=== PATIENT | male | born 1990 | race Two or more races ===

== ENCOUNTER 2018-12-07 21:32 | Emergency (ER) | payer SELFPAY ==
[~2018-12-07] VITALS: Ht 180.3 cm; Wt 87.0 kg
[~2018-12-07 21:32] MED LIST: NONE REPORTED
[2018-12-07] MEDS ORDERED: IBUPROFEN 800MG TABLET PO ONE (23:30)
[2018-12-07] MEDS ORDERED: CEPHALEXIN 250MG CAPSULE PO ONE ×2 (23:30)
[2018-12-07 23:54] VITALS: BP 136/55
== END 2018-12-07 23:57 | disposition home or self-care (01) ==
LOC: ER 21:32
DX: H00.031 Abscess of right upper eyelid (principal); F12.10 Cannabis abuse, uncomplicated
CPT/HCPCS: 99283

== ENCOUNTER 2019-02-19 22:20 | Emergency (ER) | payer SELFPAY ==
[~2019-02-19] VITALS: Ht 175.3 cm; Wt 86.0 kg
[2019-02-20] MEDS ORDERED: ACETAMINOPHEN WITH CODEINE 300/30MG TABLET PO ONE (01:30)
[2019-02-20 01:56] VITALS: BP 124/78
== END 2019-02-20 01:57 | disposition home or self-care (01) ==
LOC: ER 22:20
DX: K08.89 Other specified disorders of teeth and supporting structures (principal); F12.10 Cannabis abuse, uncomplicated
CPT/HCPCS: 99282

== ENCOUNTER 2024-09-07 10:22 | Emergency (ER) | payer SELFPAY ==
[~2024-09-07] VITALS: Ht 180.3 cm; Wt 78.0 kg
[2024-09-07 10:39] VITALS: O2SAT 98
[2024-09-07 10:55] LABS: BASOPHILS % 0.7 % (0.0-2.0); EOSINOPHILS % 2.6 % (0.0-5.0); HEMATOCRIT. 40.7 % (42.0-52.0); HEMOGLOBIN. 13.7 g/dL (14.0-18.0); LYMPHOCYTES % 27.7 % (20.0-50.0); MEAN CORPUSCULAR HEMOGLOBIN 31.1 pg (28.0-32.0); MEAN CORPUSCULAR HGB CONC 33.7 g/dL (31.0-37.0); MEAN CORPUSCULAR VOLUME 92.3 fL (80.0-94.0); MEAN PLATELET VOLUME 7.8 fl (7.4-10.4); MONOCYTES % 5.5 % (2.0-8.0); NEUTROPHILS % 63.5 % (40.0-76.0); PLATELET 228 x1000/uL (130-400); RED BLOOD CELL COUNT 4.41 mill/uL (4.7-6.1); RED CELL DISTRIBUTION WIDTH 12.8 % (11.6-14.6); WHITE BLOOD COUNT 7.1 x1000/uL (4.5-11.0)
[2024-09-07 11:16] LABS: CHLORIDE 105 mEq/L (98-107); POTASSIUM 3.9 mEq/L (3.5-5.1); SODIUM 141 mEq/L (136-145)
[2024-09-07 11:17] LABS: CALCIUM 9.4 mg/dL (8.7-10.4); CARBON DIOXIDE 29 mEq/L (21-32)
[2024-09-07 11:22] LABS: CREATININE 0.9 mg/dL (0.6-1.3); GLUCOSE 150 mg/dL (70-105); UREA NITROGEN BLOOD 15 mg/dL (9-23)
[2024-09-07 11:24] LABS: ALANINE AMINOTRANSFERASE 7 IU/L (10-49); ALBUMIN 4.2 g/dL (3.2-4.8); ASPARTATE AMINOTRANSFERASE 13 IU/L (<34); BILIRUBIN DIRECT 0.5 mg/dL (<=3.0)
[2024-09-07 11:25] LABS: BILIRUBIN TOTAL 1.6 mg/dL (0.1-1.0); PROTEIN TOTAL 6.7 g/dL (6.0-8.3)
[2024-09-07] MEDS: SODIUM CHLORIDE 0.9% 1,000 ML IV ONE (12:12)
[2024-09-07] MEDS: KETOROLAC 30MG/ML VIAL IV STA (12:36)
[2024-09-07] MEDS: ONDANSETRON HCL 4MG/2ML INJ IV STA (12:36)
[2024-09-07] MEDS ORDERED: IOHEXOL-350 100 ML BOTTLE ONE (12:56)
[2024-09-07] MEDS ORDERED: ONDA4TAB50 PO (13:42)
[2024-09-07] MEDS ORDERED: BISM-77 PO (13:42)
[2024-09-07] MEDS ORDERED: ACET-2708 MT (13:42)
[2024-09-07 13:55] VITALS: BP 122/77; PULSE 72; RESP 16; TEMP 36.7; O2SAT 99
== END 2024-09-07 14:12 | disposition home or self-care (01) ==
LOC: ER 10:32
DX: K52.9 Noninfective gastroenteritis and colitis, unspecified (principal); I10 Essential (primary) hypertension
CPT/HCPCS: 80076; 80048; 83690; 85025; 36415; 74177; 96361; 96374; 96375; 99285; Q9967; J1885; J2405; J7030; Z7610 ×2